=== PATIENT | male | born 1955 | race Caucasian/White ===

== ENCOUNTER → 2022-01-09 | Day surgery (SDC) | payer OTHER ==
[~2022-01-09] VITALS: Ht 177.8 cm; Wt 101.2 kg
[~2022-01-09] MED LIST: ALL DAY ALLERGY10 MG PO; ATENOLOL25 MG PO; CRESTOR20 M1 PO; DIOVAN320 MG PO; HCTZ25 MG PO; MUCINEX PO; PLAVIX75 MG PO; PROTONIX 40MG T40 MG PO; VITAMIN B-121000 MC1 PO; VITAMIN D325 MC3 PO
== END | disposition home or self-care (01) ==
LOC: FAS 06:21
DX: Z12.11 Encounter for screening for malignant neoplasm of colon (principal); D12.4 Benign neoplasm of descending colon; D12.5 Benign neoplasm of sigmoid colon; D12.3 Benign neoplasm of transverse colon; K57.30 Diverticulosis of large intestine without perforation or abscess without bleeding; K64.8 Other hemorrhoids; I10 Essential (primary) hypertension; F17.210 Nicotine dependence, cigarettes, uncomplicated; Z88.1 Allergy status to other antibiotic agents; Z88.5 Allergy status to narcotic agent; Z88.8 Allergy status to other drugs, medicaments and biological substances; Z79.02 Long term (current) use of antithrombotics/antiplatelets; Z79.899 Other long term (current) drug therapy; Z72.89 Other problems related to lifestyle
CPT/HCPCS: J2704; J7120